=== PATIENT | female | born 1995 | race African-American/Black ===

== ENCOUNTER 2016-11-21 15:07 | Inpatient (IN) ==
[2016-11-21 15:44] LABS: MANUAL DIFF NEEDED? NO
[2016-11-21 15:47] LABS: BASO% 0.1 % (0.0-0.8); EOS# 0.09 X1000 (0.0-0.7); EOS% 1.3 % (0.0-10.0); HEMATOCRIT 31.3 % (37.0-47.0); HEMOGLOBIN 10.5 g/dL (12.0-16.0); IMM GRAN# 0.02 X1000 (0.0-0.04); IMM GRAN% 0.3 % (0.0-0.5); LYMPH# 1.55 X1000 (1.2-3.4); LYMPH% 22.8 % (20.5-51.1); MCH 29.2 PG (27-31); MCHC 33.5 g/dL (33-37); MCV 87.2 FL (81-99); MONO# 0.96 X1000 (0.11-0.59); MONO% 14.1 % (1.7-9.3); MPV 12.2 FL (7.4-10.4); NEUT% 61.4 % (42.2-75.2); PLT 154 X1000 (130-400); RBC 3.59 XMIL (4.2-5.4)
[2016-11-21 16:07] LABS: AGAP 10; ALKALINE PHOSPHATASE 158 U/L (32-104); BUN 17 mg/dL (8-22); CALCIUM 8.8 mg/dL (8.8-10.2); CHLORIDE 101 mmol/L (98-107); COSMO 267; GOT 16 U/L (10-30); GPT 11 U/L (10-36); POTASSIUM 3.9 mmol/L (3.5-5.1); SODIUM 133 mmol/L (136-145); TCO2 22 mmol/L (25-35); TOTAL BILIRUBIN < 0.15 mg/dL (0.20-1.00); TOTAL PROTEIN 5.9 g/dL (6.3-8.3); URIC ACID 5.4 mg/dL (2.4-5.7)
[2016-11-21] MEDS ORDERED: PITOCIN 30 UNITS/LR 30 UNITS/500 ML IV.SOLN IV SCH (17:01)
[2016-11-21] MEDS ORDERED: AMBIEN PO PRN (17:01)
[2016-11-21] MEDS ORDERED: TYLENOL PO PRN (17:01)
[2016-11-21] MEDS ORDERED: PEPCID IV PRN (17:01)
[2016-11-21] MEDS ORDERED: LR 1,000 ML IV ONE (17:01)
[2016-11-21] MEDS ORDERED: BRETHINE SUBQ PRN (17:01)
[2016-11-21] MEDS ORDERED: ZOFRAN IV PRN (17:01)
[2016-11-21] MEDS ORDERED: KEFZOL 1 GM/D5W 1 GM/50 ML IVPB IV PRN (17:01)
[2016-11-21] MEDS ORDERED: STADOL IV PRN ×3 (17:01)
[2016-11-21] MEDS ORDERED: PEPCID PO PRN (17:01)
[2016-11-21] MEDS ORDERED: REGLAN PO ONE (17:01)
[2016-11-21] MEDS ORDERED: PEPCID PO ONE (17:01)
[2016-11-21] MEDS ORDERED: AMPICILLIN 2 GM/NS 2 GM/100 ML IVPB IV ONE ×2 (17:01→20:04)
[2016-11-21] MEDS ORDERED: LR 1,000 ML ONE (17:53)
[2016-11-21] MEDS ORDERED: CYTOTEC PO ONE (20:00)
[2016-11-21] MEDS ORDERED: TRANDATE PO ONE (20:51)
[2016-11-21] MEDS ORDERED: APRESOLINE PO PRN (20:52)
[2016-11-22] MEDS: AMPICILLIN 1 GM/NS 1 GM/50 ML IVPB IV SCH ×2 (00:26→04:18)
[2016-11-22] MEDS: CYTOTEC PO SCH ×2 (00:29→04:19)
[2016-11-22] MEDS ORDERED: APRESOLINE IV PRN (02:13)
[2016-11-22] MEDS ORDERED: SODIUM CHLORIDE 0.9% INJ ONE ×2 (02:24→06:55)
[2016-11-22] MEDS ORDERED: PHENERGAN IV ONE (02:24)
[2016-11-22] MEDS ORDERED: BICITRA PO ONE (06:55)
[2016-11-22] MEDS ORDERED: PEPCID IV ONE (06:55)
[2016-11-22] MEDS ORDERED: QUELICIN ONE (07:17)
[2016-11-22] MEDS ORDERED: PITOCIN ONE (07:18)
[2016-11-22] MEDS ORDERED: DIPRIVAN 1% ONE ×2 (07:21→07:30)
[2016-11-22 07:28] LABS: MANUAL DIFF NEEDED? NO
[2016-11-22] MEDS ORDERED: DURAMORPH ONE (07:31)
[2016-11-22 07:36] LABS: BASO% 0.3 % (0.0-0.8); EOS# 0.03 X1000 (0.0-0.7); EOS% 0.5 % (0.0-10.0); HEMATOCRIT 34.4 % (37.0-47.0); HEMOGLOBIN 11.4 g/dL (12.0-16.0); IMM GRAN# 0.02 X1000 (0.0-0.04); IMM GRAN% 0.3 % (0.0-0.5); LYMPH# 1.58 X1000 (1.2-3.4); LYMPH% 24.5 % (20.5-51.1); MCH 29.1 PG (27-31); MCHC 33.1 g/dL (33-37); MCV 87.8 FL (81-99); MONO# 0.89 X1000 (0.11-0.59); MONO% 13.8 % (1.7-9.3); MPV 12.8 FL (7.4-10.4); NEUT% 60.6 % (42.2-75.2); PLT 148 X1000 (130-400); RBC 3.92 XMIL (4.2-5.4)
[2016-11-22] MEDS ORDERED: ZOFRAN ONE (07:45)
[2016-11-22] MEDS ORDERED: TORADOL ONE (07:45)
[2016-11-22] MEDS ORDERED: PITOCIN IM PRN (07:48)
[2016-11-22] MEDS ORDERED: MYLICON PO PRN (07:48)
[2016-11-22] MEDS ORDERED: HYDROXYZINE IM PRN (07:48)
[2016-11-22] MEDS ORDERED: CYTOTEC PO PRN (07:48)
[2016-11-22] MEDS ORDERED: M-M-R II VACCINE SUBQ ONE (07:48)
[2016-11-22] MEDS ORDERED: NORCO-5 PO PRN (07:48)
[2016-11-22] MEDS ORDERED: DEMEROL PO PRN ×2 (07:48)
[2016-11-22] MEDS ORDERED: AMBIEN PO PRN (07:48)
[2016-11-22] MEDS ORDERED: DEMEROL IM PRN (07:48)
[2016-11-22] MEDS ORDERED: BOOSTRIX VACCINE IM ONE (07:48)
[2016-11-22] MEDS ORDERED: DULCOLAX PR PRN (07:48)
[2016-11-22] MEDS ORDERED: PHENERGAN IM PRN (07:48)
[2016-11-22] MEDS ORDERED: HYDROXYZINE PO PRN (07:48)
[2016-11-22] MEDS ORDERED: PITOCIN 20 UNITS/LR 20 UNITS/1,000 ML IV.SOLN IV ONE (07:48)
[2016-11-22] MEDS ORDERED: MAGNESIUM SULFATE 4 GM/S.W.I. 4 GM/100 ML IVPB IV ONE (07:49)
[2016-11-22] MEDS ORDERED: PITOCIN 10 UNITS/LR 10 UNIT/1,000 ML IV.SOLN IV SCH (08:00)
[2016-11-22 08:40] LABS: AGAP 14; ALBUMIN 2.9 g/dL (3.5-5.0); ALKALINE PHOSPHATASE 168 U/L (32-104); BUN 17 mg/dL (8-22); CALCIUM 8.2 mg/dL (8.8-10.2); CHLORIDE 104 mmol/L (98-107); COSMO 274; GOT 17 U/L (10-30); GPT 11 U/L (10-36); POTASSIUM 4.3 mmol/L (3.5-5.1); SODIUM 137 mmol/L (136-145); TCO2 20 mmol/L (25-35); TOTAL BILIRUBIN < 0.15 mg/dL (0.20-1.00); TOTAL PROTEIN 5.5 g/dL (6.3-8.3)
--- NOTE | 2016-11-22 09:58 | HISTORY AND PHYSICAL ---
HISTORY OF PRESENT ILLNESS: The patient is a 21-year-old female 1, para 0 who is approximately 38-1/2 weeks. She was seen in the office with increasing blood pressures and 4+ proteinuria. She came to labor and delivery with some blood pressures with diastolics of 110. She was given 3 doses of Cytotec. On the following morning, she was still fingertip dilated. After discussion with the patient, we decided to proceed with primary for nonfavorable cervix and -induced hypertension. PAST MEDICAL HISTORY: None. MEDICINES: vitamins. ALLERGIES: None. PHYSICAL EXAMINATION: GENERAL: Well-developed female. HEENT: Benign. NECK: Supple. LUNGS: Clear. CARDIOVASCULAR: Regular rate and rhythm. ABDOMEN: Soft, nontender. EXTREMITIES: Without clubbing, cyanosis, or edema. ASSESSMENT AND PLAN: This is a 21-year-old with a 38-1/2-week intrauterine , - induced hypertension, nonfavorable cervix, admitted at this time for a primary section for delivery. cc: MD Manuelito Tovar MD
[2016-11-22] MEDS: MAGNESIUM SULFATE 40 GM/S.W.I. 40 GM/1,000 ML IV.SOLN IV SCH (10:00)
--- NOTE | 2016-11-22 10:49 | OPERATIVE NOTE ---
PROCEDURE DATE : 11/22/2016 PREOPERATIVE DIAGNOSES: 1. Term intrauterine . 2. -induced hypertension. 3. Nonfavorable cervix. POSTOPERATIVE DIAGNOSES: 1. Term intrauterine . 2. -induced hypertension. 3. Nonfavorable cervix. PROCEDURE: Primary low transverse section. SURGEON: Lalo Yeung MD ANESTHESIA: Spinal. FINDINGS: The patient had a male born weighing 6 pounds 13 ounces, Apgars 9 and 10. DESCRIPTION OF OPERATION: The patient was taken to the operating room and underwent spinal anesthesia, was given Ancef IV. She was prepped and draped in sterile fashion. Pump hose and stockings were placed. Iverson catheter was inserted. We made a Pfannenstiel skin incision and sharply dissected down to fascia. Fascia was dissected off the rectus muscle. The peritoneum was entered into and dissected down and create the bladder flap. A low transverse incision was made. Clear fluid was noted upon entering the amniotic sac. The infant was delivered using fundal pressure. The did have 1 nuchal cord. Cord blood was obtained. Placenta was removed. She was given IV Pitocin. The uterus was externalized, cleaned with a clean lap. The incision was closed with a #1 chromic in interlocking fashion. The uterus was put back in its anatomic position. Irrigation was done. Good hemostasis was noted throughout. The rectus muscle was closed with 0 chromic suture. Hemostasis was maintained with a Bovie. The fascia was closed with #1 Vicryl. Skin was then closed with a 4-0 Biosyn and dressed. Estimated blood loss 500 mL. Mother and are doing well. cc: MD Manuelito Tovar MD
[2016-11-22] MEDS ORDERED: BENADRYL ONE (11:14)
[2016-11-22] MEDS ORDERED: BENADRYL IV PRN (12:40)
[2016-11-22] MEDS ORDERED: ZOFRAN ODT PO PRN (12:40)
[2016-11-22] MEDS ORDERED: NARCAN INJ PRN (12:40)
[2016-11-22] MEDS ORDERED: ZOFRAN IV PRN ×2 (12:40)
[2016-11-22] MEDS ORDERED: MORPHINE IV PRN (12:41)
[2016-11-22] MEDS ORDERED: TORADOL IV PRN (12:41)
[2016-11-22] MEDS: MYLICON PO SCH ×3 (14:24→21:13)
[2016-11-22] MEDS: PERICOLACE PO SCH (21:13)
[2016-11-23] MEDS: NORCO-10 PO PRN ×3 (03:18→16:46)
[2016-11-23] MEDS: MOTRIN PO PRN ×3 (03:19→20:45)
[2016-11-23] MEDS: MAGNESIUM SULFATE 40 GM/S.W.I. 40 GM/1,000 ML IV.SOLN IV SCH (07:02)
[2016-11-23] MEDS: MYLICON PO SCH ×5 (07:03→20:45)
[2016-11-23 07:05] LABS: HEMATOCRIT 29.6 % (37.0-47.0); HEMOGLOBIN 9.8 g/dL (12.0-16.0); MCH 29.2 PG (27-31); MCHC 33.1 g/dL (33-37); MCV 88.1 FL (81-99); MPV 12.7 FL (7.4-10.4); RBC 3.36 XMIL (4.2-5.4)
[2016-11-23] MEDS: LR 1,000 ML IV SCH (17:13)
[2016-11-23] MEDS ORDERED: NEOSPORIN OINTMENT PACKET TOP ONE (19:15)
[2016-11-23] MEDS: PERICOLACE PO SCH (20:45)
[2016-11-24] MEDS: NORCO-10 PO PRN ×3 (04:26→18:08)
[2016-11-24] MEDS: MOTRIN PO PRN ×2 (04:26→18:08)
[2016-11-24] MEDS: MAGNESIUM SULFATE 40 GM/S.W.I. 40 GM/1,000 ML IV.SOLN IV SCH (09:22)
[2016-11-24] MEDS: MYLICON PO SCH ×4 (09:22→20:59)
[2016-11-24] MEDS: LR 1,000 ML IV SCH ×2 (09:23→16:32)
[2016-11-24] MEDS ORDERED: PERCOCET-5 PO PRN (18:40)
[2016-11-24] MEDS ORDERED: EPIFOAM FOAM TOP PRN (19:55)
[2016-11-24] MEDS: NEOSPORIN OINTMENT PACKET TOP SCH (20:59)
[2016-11-24] MEDS: PERCOCET-10 PO PRN (20:59)
[2016-11-24] MEDS: PERICOLACE PO SCH (20:59)
[2016-11-25] MEDS: PERCOCET-10 PO PRN ×4 (00:49→14:30)
[2016-11-25] MEDS: PERI MEDS (DERMOPLAST/NUPERCAINAL/TUCKS) MISC PRN ×2 (01:16→10:03)
[2016-11-25] MEDS: MOTRIN PO PRN ×2 (04:47→14:30)
[2016-11-25] MEDS: MYLICON PO SCH ×2 (10:02→14:12)
[2016-11-25] MEDS: NEOSPORIN OINTMENT PACKET TOP SCH (10:02)
[2016-11-25] MEDS ORDERED: ADALAT CC PO ONE (13:23)
[2016-11-25] MEDS ORDERED: LASIX PO ONE (13:24)
[2016-11-25 16:42] VITALS: BP 152/95
--- NOTE | 2016-11-25 19:16 | DISCHARGE SUMMARY ---
ADMISSION DATE: 11/21/2016 DISCHARGE DATE: 11/25/2016 ADMITTING DIAGNOSES: 1. Term . 2. -induced hypertension. PRINCIPAL DIAGNOSES: 1. Term . 2. -induced hypertension. 3. Failed induction of labor. PRINCIPAL PROCEDURE: Primary low-transverse . SUMMARY: Kaitlyn Neff is a 21-year-old primigravida who was at 38 and a half weeks gestation when she was admitted due to elevated blood pressures and 4+ proteinuria. She was admitted and Cytotec induction of labor was attempted however the patient failed to make any progress in labor and therefore Dr. Yeung performed a primary low transverse . She delivered a male infant weighing 6 pounds and 13 ounces. 's were 9 at 1 minute and 10 at 5 minutes. There were no interoperative complications. Postoperatively, the patient did well. She remained afebrile. Her blood pressures remain elevated, and over the last 24 hours have been any where from 169/93 to 138.93. Laboratory evaluation showed admission hemoglobin and hematocrit of 10.5/31.3 with a platelet count of 154,000. This morning cardiac and pulmonary examinations are normal. Deep tendon reflexes are normal. She does have 3+ peripheral edema. Her incision was dry. She is having scant vaginal bleeding. Mrs. Neff is going to be discharged today and we will see her back in the office on Friday. She will continue vitamins. I have given prescriptions of Percocet 10 #30 and Motrin 800 mg for postoperative pain. I am going to start her on 60 of the Procardia XL a day and I am going to give her Lasix 20 mg a day for the next several days. She will call if there are any problems. Otherwise, we will see her on Friday. cc: MD Manuelito Bernal MD
== END 2016-11-25 15:00 | disposition home or self-care (01) ==
LOC: P.OPLD 15:07 → P.LD 15:12
PROVIDERS: ADMIT Obstetrics & Gynecology; ATTEND Obstetrics & Gynecology